=== PATIENT | male | born 1950 ===

== ENCOUNTER → 2018-02-01 | Outpatient (CLI) | payer OTHER | END | disposition home or self-care (01) | LOC: SONOGRAMA 10:22 | DX: M25.512 Pain in left shoulder (principal) ==

== ENCOUNTER 2018-03-24 10:30 | Outpatient (CLI) | payer OTHER | END 2018-03-24 10:34 | disposition home or self-care (01) | LOC: MRI 10:30 | DX: M75.122 Complete rotator cuff tear or rupture of left shoulder, not specified as traumatic (principal); M19.012 Primary osteoarthritis, left shoulder | CPT/HCPCS: 73221 ==